=== PATIENT | female | born 1995 | race Caucasian/White ===

== ENCOUNTER 2016-08-30 07:23 | Emergency (ER) | payer SELFPAY ==
[~2016-08-30] VITALS: Ht 152.4 cm; Wt 68.0 kg
[2016-08-30] MEDS ORDERED: LIDOCAINE 2% VISCOUS 15 ML UDC PO ONE (07:45)
[2016-08-30] MEDS ORDERED: ANTACID SUSP 30 ML UDC (MYLANTA) PO ONE (07:45)
[2016-08-30] MEDS ORDERED: ONDANSETRON 4 MG (ZOFRAN) ORAL DISSOLVE TAB PO ONE (08:00)
--- NOTE | 2016-08-30 08:13 | ED Abdominal Pain ---
General Chief Complaint: Abdominal/GI Problems Stated Complaint: ABD PAIN Nursing Triage Note: PT REPORTS EPIGASTRIC PAIN SINCE AWAKENING THIS AM. SHE DENIES N/V OR FEVER. Sepsis Screen: No Definite Risk Source of Information: Patient Exam Limitations: No Limitations History of Present Illness Time Seen By Provider: 08:13 Initial Comments This 21-year-old white female presents with complaint of severe sharp nonradiating epigastric pain that began this morning from prior presentation to the ED. the patient is a history of similar pain in the past from reflux disease for which she has received intermittent treatment, none currently. The patient states that she has had slight nausea with the pain. She has had no associated palpitations, radiation, shortness of breath, fever or chills, black or tarry stools, dysuria or frequency. Next Patient states that she did notice some bright red blood in her stool this morning. The patient has had hemorrhoids in the past with similar bright red blood. Patient's a white female. Patient denies any dietary indiscretion last evening or significant ethanol ingestion. Allergies and Home Medications Allergies Coded Allergies: latex (Verified Allergy, Unknown, 08/30/16) Review of Systems Constitutional: No chills, No fever EENTM: No Blurred Vision Respiratory: Denies Cough Cardiovascular: Denies Chest Pain Gastrointestinal: See HPI, Abdominal Pain, Denies Diarrhea, Nausea, Rectal Bleeding, Denies Vomiting Genitourinary: Denies Burning, Denies Drainage, Denies Frequency Musculoskeletal: No back pain, No joint pain Skin: No rash Psychiatric/Neurological: Anxiety Endocrine: Denies No Symptoms Reported Hematologic/Lymphatic: Denies No Symptoms Reported Past Acaxqyo-Wlbkak-Qxydyc Hx Patient Social History Alcohol Use: Occasionally Uses Recreational Drug Use: No Smoking Status: Current Everyday Smoker Type Used: Cigarettes 2nd Hand Smoke Exposure: Yes Recent Foreign Travel: No Contact w/Someone Who Travel: No Recent Infectious Disease Expo: No Recent Hopitalizations: No Seasonal Allergies Seasonal Allergies: No Reproductive System : No Reviewed Nursing Assessment Reviewed/Agree w Nursing PMH: Yes Physical Exam Vital Signs VS - Last 72 Hours, by Label 08/30/16 07:25 Temp 98.2 Pulse 76 Resp 16 B/P (MAP) 132/73 Pulse Ox 98 O2 Delivery Room Air Capillary Refill : Less Than 3 Seconds General Appearance: WD/WN, mild distress HEENT: normal ENT inspection Neck: normal inspection Respiratory: chest non-tender, lungs clear, normal breath sounds Cardiovascular: regular rate, rhythm, no murmur Gastrointestinal: normal bowel sounds, soft, tenderness (there was mild tenderness in the epigastric region) Rectal: normal exam, normal rectal tone, heme negative stool Extremities: normal range of motion, non-tender, normal inspection Back: normal inspection, no vertebral tenderness Neurologic/Psychiatric: no motor/sensory deficits, alert, normal mood/affect Skin: normal color, warm/dry Progress/Results/Core Measures Results/Orders My Orders Orders - LC MARTINEZ MD Lidocaine 2% Viscous 15 Ml (Xylocaine Vi (08/30/16 07:45) Antacid Suspension (Mylanta Suspension (08/30/16 07:45) Ondansetron Oral Dissolve Tab (Zofran (08/30/16 08:00) Medications Given in ED Current Medications Medications Dose Ordered Sig/Mercedes Route Start Time Stop Time Status Last Admin Dose Admin Al Hydrox/Mg Hydrox/Simethicone 30 ml ONCE ONCE PO 08/30/16 07:45 08/30/16 07:46 DC 08/30/16 07:47 30 ML Lidocaine HCl 15 ml ONCE ONCE PO 08/30/16 07:45 08/30/16 07:46 DC 08/30/16 07:47 15 ML Ondansetron HCl 4 mg ONCE ONCE PO 08/30/16 08:00 08/30/16 08:01 DC 08/30/16 08:01 4 MG Vital Signs/I&O Vital Sign - Last 12Hours 08/30/16 07:25 Temp 98.2 Pulse 76 Resp 16 B/P (MAP) 132/73 Pulse Ox 98 O2 Delivery Room Air Blood Pressure Mean: 92 Point of Care Testing Fecal Occult: Negative Progress Note : Time: 08:19 Progress Note The patient's discomfort was relieved with a GI cocktail. Patient was given 4 mg ODT ondansetron. Patient declined laboratory and radiographic evaluation she had limited income. Departure Impression Impression: Primary Impression: Acid reflux disease Qualified Codes: K21.0 - Gastro-esophageal reflux disease with esophagitis Disposition: 01 HOME, SELF-CARE Condition: Improved Departure-Patient Inst. Decision time for Depature: 08:10 Referrals: LAUREEN THIBODEAUX (PCP) Primary Care Physician Patient Instructions: Acid Reflux (Gastroesophageal Reflux Disease), Adult (DC) Add. Discharge Instructions: Pepcid as prescribed. Close follow-up with your primary care doctor tomorrow. Return if any problems or questions. All discharge instructions reviewed with patient and/or family. Voiced understanding. LC MARTINEZ MD Aug 30, 2016 08:13
[2016-08-30 08:18] VITALS: BP 132/73
== END 2016-08-30 08:20 | disposition home or self-care (01) ==
LOC: EDUNIT# 07:23 → ER 07:26
DX: K21.9 Gastro-esophageal reflux disease without esophagitis (principal); F17.210 Nicotine dependence, cigarettes, uncomplicated; Z77.22 Contact with and (suspected) exposure to environmental tobacco smoke (acute) (chronic)
CPT/HCPCS: 99284

== ENCOUNTER 2018-06-15 14:21 | Emergency (ER) | payer SELFPAY ==
[~2018-06-15] VITALS: Ht 152.4 cm; Wt 77.1 kg
[2018-06-15 14:38] VITALS: BP 132/87
[2018-06-15 15:51] LABS: CLARITY,URINE CLEAR; COLOR,URINE AMBER; GLUCOSE, URINE (UA) NEGATIVE (NEGATIVE); KETONES,URINE 4+ (NEGATIVE); LEUKOCYTE ESTERASE ,URINE 1+ (NEGATIVE); NITRITE,URINE POSITIVE (NEGATIVE); PH,URINE 5 (5-9); PROTEIN,URINE 2+ (NEGATIVE); UROBILINOGEN,URINE 8 MG/DL (NORMAL)
[2018-06-15 16:25] LABS: BACTERIA,URINE FEW /HPF; BILIRUBIN,URINE 3+ (NEGATIVE); SQUAMOUS EPITHELIAL CELL,UR 25-50 /HPF
== END 2018-06-15 15:09 | disposition left against medical advice (07) ==
LOC: EDUNIT# 14:21 → ER 14:22
DX: N15.9 Renal tubulo-interstitial disease, unspecified (principal); F17.210 Nicotine dependence, cigarettes, uncomplicated
CPT/HCPCS: 81000; 87088; 99281

== ENCOUNTER 2018-06-15 15:24 | Emergency (ER) | payer SELFPAY ==
[~2018-06-15] VITALS: Ht 152.4 cm; Wt 77.1 kg
--- OUTSIDE RECORDS SUMMARY | 2018-06-15 15:28 | XMS REPORT ---
Author Author FAY COY [facility] Address [address] [place] [address] Care Team Providers Care Verification Engineer Name Role Phone FAY COY Unavailable PROBLEMS Unknown Problems ALLERGIES No Information ENCOUNTERS Encounter Location Date Diagnosis [facility] [address] [id number] [place] [address] Nov, Encounter for immunization Z23 IMMUNIZATIONS Vaccine Route Administration Date Status FLULAVAL QUAD 0.5ML (6 MO & UP) 2018 IM Intramuscular Dec 10, 2017 Administered SOCIAL HISTORY Never Assessed REASON FOR VISIT Flu shot PLAN OF CARE VITAL SIGNS MEDICATIONS Unknown Medications RESULTS No Results PROCEDURES Procedure Date Ordered Result Body Site FLULAVAL QUAD 0.5ML (6 MO AND UP) 2017Dec 10, 2017 SINGLE IMMUNIZATION ADMIN Dec 10, 2017 INSTRUCTIONS MEDICATIONS ADMINISTERED No Known Medications
--- OUTSIDE RECORDS SUMMARY | 2018-06-15 15:28 | XMS REPORT | Clinical Summary ---
Author Author [facility] Organization [facility] Address Unknown Phone Unavailable Care Team Providers Care It Service Manager Name Role Phone Unverified, Unverified Md PCP Unavailable Source Comments Some departments are not documenting in the electronic medical record. If you do not see the information that you expected, contact Release of Information in the Health Information Management department at [phone] for further assistance in locating additional records.[facility] Allergies Not on File Medications Not on file Active Problems Not on file Social History Date Tobacco Use Types Packs/Day Years Used Never Assessed Sex Assigned at Date Recorded Not on file Industry Job Start Date Occupation Not on file Not on file Not on file Travel End Travel History Travel Start No recent travel history available. Last Filed Vital Signs Not on file Plan of Treatment Health Maintenance Due Date Last Done Comments PHYSICAL (COMPREHENSIVE) 2001 EXAM HIV SCREENING 2009 HPV VACCINES (1 - Female 2009 3-dose series) DTAP/TDAP VACCINES (1 - 2012 Tdap) CERVICAL CANCER SCREENING 2015 INFLUENZA VACCINE 11/15/2018 Results Not on filefrom Last 3 Months
--- NOTE | 2018-06-15 15:29 | NUR ---
TO ROOM PER W/C ACCOMPIED BY MOTHER PATIENT WAS HERE EARLIER AND LEFT DUE TO ER BEING BUSY STATES TRIED TO GO TO URGENT CARE TO BE SEEN QUICKER AND WAS TOLD TO COME BACK TO ER
[2018-06-15] MEDS ORDERED: ONDANSETRON 4 MG/2 ML (SDV) Z0FRAN IVP ONE (16:00)
[2018-06-15] MEDS ORDERED: NS IV 1000 ML 1,000 ML IV SCH (16:00)
[2018-06-15 16:08] LABS: BASOPHILS % (AUTO) 0 % (0-10); EOSINOPHILS % (AUTO) 0 % (0-10); HEMATOCRIT 46 % (35-52); HEMOGLOBIN 15.8 G/DL (11.5-16.0); LYMPHOCYTES # (AUTO) 0.7 X 10^3 (1.0-4.0); LYMPHOCYTES % (AUTO) 7 % (12-44); MEAN CORPUSCULAR HEMOGLOBIN 30 PG (25-34); MEAN CORPUSCULAR HGB CONC 34 G/DL (32-36); MEAN CORPUSCULAR VOLUME 89 FL (80-99); MEAN PLATELET VOLUME 9.7 FL (7.4-10.4); MONOCYTES # (AUTO) 0.6 X 10^3 (0.0-1.0); MONOCYTES % (AUTO) 5 % (0-12); NEUTROPHILS # (AUTO) 9.8 X 10^3 (1.8-7.8); NEUTROPHILS % (AUTO) 88 % (42-75); PLATELET COUNT 259 10^3/uL (130-400); RED CELL DISTRIBUTION WIDTH 12.3 % (10.0-14.5); WHITE BLOOD COUNT 11.1 10^3/uL (4.3-11.0)
[2018-06-15 16:29] LABS: ALANINE AMINOTRANSFERASE 146 U/L (0-55); ALBUMIN 4.6 GM/DL (3.2-4.5); ALKALINE PHOSPHATASE 130 U/L (40-136); AMYLASE 2427 U/L (25-125); BILIRUBIN,TOTAL 6.3 MG/DL (0.1-1.0); BUN/CREATININE RATIO 12; CALCIUM 10.5 MG/DL (8.5-10.1); CARBON DIOXIDE 26 MMOL/L (21-32); CHLORIDE 98 MMOL/L (98-107); CREATININE SERUM 0.75 MG/DL (0.60-1.30); GFR ESTIMATED > 60; GLUCOSE 128 MG/DL (70-105); POTASSIUM 3.7 MMOL/L (3.6-5.0); SODIUM 139 MMOL/L (135-145); TOTAL PROTEIN 8.3 GM/DL (6.4-8.2)
[2018-06-15] MEDS ORDERED: fentaNYL INJECTION 100 MCG/2 ML AMP IVP ONE ×3 (16:30→19:45)
--- NOTE | 2018-06-15 16:52 | ED Abdominal Pain ---
General Chief Complaint: Abdominal/GI Problems Stated Complaint: KIDNEY INFECTION Nursing Triage Note: PT RETURNS TO ER WITH COMPLAINT OF N/V, ABD PAIN. PT STATES SHE WAS RECENTLY DIAGNOSED WITH KIDNEY INFECTION. PT IS CURRENTLY TAKING MACROBID, STARTED YESTERDAY. PT STATES SHE IS TAKING ZOFRAN FOR NAUSEA. Sepsis Screen: No Definite Risk Source of Information: Patient Exam Limitations: No Limitations History of Present Illness Date Seen by Provider: June 15, 2018 Time Seen by Provider: 15:56 Initial Comments 23-year-old female who presents to the emergency room with complaints of nausea and vomiting, epigastric abdominal pain, and a recent urinary tract infection. She reports that she is currently on Macrobid and Zofran for antibiotic coverage and nausea and vomiting but reports that she is still having persistent vomiting with the use of Zofran. She has been on Macrobid 24 hours. She denies fevers. Timing/Duration: 2-3 Days Severity/Quality: Sharp Location: Epigastric Radiation: No Radiation Associated Symptoms: Nausea/Vomiting Allergies and Home Medications Allergies Coded Allergies: azithromycin (Verified Allergy, Unknown, 06/15/18) latex (Verified Allergy, Unknown, 08/30/16) Patient Home Medication List Home Medication List Reviewed: Yes Review of Systems Review of Systems Constitutional: see HPI; No chills, No fever Gastrointestinal: See HPI, Abdominal Pain, Nausea, Vomiting All Other Systems Reviewed Negative Unless Noted: Yes Past Nbbmkdw-Eqfurt-Owshbu Hx Past Med/Social Hx: Reviewed Nursing Past Med/Soc Hx Patient Social History Alcohol Use: Denies Use Recreational Drug Use: No Smoking Status: Current Everyday Smoker Type Used: Cigarettes 2nd Hand Smoke Exposure: Yes Recent Foreign Travel: No Contact w/Someone Who Travel: No Recent Infectious Disease Expo: No Recent Hopitalizations: No Immunizations Up To Date Tetanus Booster (TDap): Unknown Seasonal Allergies Seasonal Allergies: No Past Medical History Surgeries: No Respiratory: No Cardiac: No Neurological: No Genitourinary: No Gastrointestinal: No Musculoskeletal: No Endocrine: No HEENT: No Cancer: No Psychosocial: No Blood Disorders: No Family Medical History Reviewed Nursing Family Hx Physical Exam Vital Signs Vital Signs - First Documented 06/15/18 15:30 Temp 98.0 Pulse 71 Resp 19 B/P (MAP) 127/89 (102) Pulse Ox 98 O2 Delivery Room Air Capillary Refill : Less Than 3 Seconds Height/Weight/BMI Height: 5'0" Weight: 170lbs. oz. 77.624663st; BMI Method:Stated General Appearance: WD/WN, no apparent distress Respiratory: chest non-tender, lungs clear, normal breath sounds, no respiratory distress, no accessory muscle use Cardiovascular: normal peripheral pulses, regular rate, rhythm, no edema, no gallop, no JVD, no murmur Gastrointestinal: normal bowel sounds, soft, no organomegaly, no pulsatile mass , tenderness (epigastric tenderness) Extremities: normal capillary refill Neurologic/Psychiatric: alert, normal mood/affect, oriented x 3 Skin: normal color Progress/Results/Core Measures Results/Orders Lab Results Laboratory Tests Test 06/15/18 15:58 Range/Units White Blood Count 11.1 H 4.3-11.0 10^3/uL Red Blood Count 5.19 4.35-5.85 10^6/uL Hemoglobin 15.8 11.5-16.0 G/DL Hematocrit 46 35-52 % Mean Corpuscular Volume 89 80-99 FL Mean Corpuscular Hemoglobin 30 25-34 PG Mean Corpuscular Hemoglobin Concent 34 32-36 G/DL Red Cell Distribution Width 12.3 10.0-14.5 % Platelet Count 259 130-400 10^3/uL Mean Platelet Volume 9.7 7.4-10.4 FL Neutrophils (%) (Auto) 88 H 42-75 % Lymphocytes (%) (Auto) 7 L 12-44 % Monocytes (%) (Auto) 5 0-12 % Eosinophils (%) (Auto) 0 0-10 % Basophils (%) (Auto) 0 0-10 % Neutrophils # (Auto) 9.8 H 1.8-7.8 X 10^3 Lymphocytes # (Auto) 0.7 L 1.0-4.0 X 10^3 Monocytes # (Auto) 0.6 0.0-1.0 X 10^3 Eosinophils # (Auto) 0.0 0.0-0.3 10^3/uL Basophils # (Auto) 0.0 0.0-0.1 10^3/uL Neutrophils % (Manual) 89 % Lymphocytes % (Manual) 6 % Monocytes % (Manual) 5 % Blood Morphology Comment NORMAL Sodium Level 139 135-145 MMOL/L Potassium Level 3.7 3.6-5.0 MMOL/L Chloride Level 98 98-107 MMOL/L Carbon Dioxide Level 26 21-32 MMOL/L Anion Gap 15 H 5-14 MMOL/L Blood Urea Nitrogen 9 7-18 MG/DL Creatinine 0.75 0.60-1.30 MG/DL Estimat Glomerular Filtration Rate > 60 BUN/Creatinine Ratio 12 Glucose Level 128 H 70-105 MG/DL Calcium Level 10.5 H 8.5-10.1 MG/DL Corrected Calcium 8.5-10.1 MG/DL Total Bilirubin 6.3 H 0.1-1.0 MG/DL Aspartate Amino Transf (AST/SGOT) 49 H 5-34 U/L Alanine Aminotransferase (ALT/SGPT) 146 H 0-55 U/L Alkaline Phosphatase 130 40-136 U/L Total Protein 8.3 H 6.4-8.2 GM/DL Albumin 4.6 H 3.2-4.5 GM/DL Amylase Level 2427 H 25-125 U/L Lipase 7719 H 8-78 U/L My Orders Orders - JAYCEE BANERJEE Comprehensive Metabolic Panel (06/15/18 15:55) Lipase (06/15/18 15:55) Amylase (06/15/18 15:55) Ed Iv/Invasive Line Start (06/15/18 15:55) Cbc With Automated Diff (06/15/18 15:55) Ns Iv 1000 Ml (Sodium Chloride 0.9%) (06/15/18 16:00) Ondansetron Injection (Zofran Injectio (06/15/18 16:00) Manual Differential (06/15/18 15:58) Fentanyl Injection (Sublimaze Injection (06/15/18 16:30) Ct Abdomen/Pelvis W (06/15/18 18:00) Iohexol Injection (Omnipaque 350 Mg/Ml 1 (06/15/18 18:15) Received Contrast (Hold Metformin- Contr (06/15/18 18:15) Fentanyl Injection (Sublimaze Injection (06/15/18 18:15) Promethazine Injection (Phenergan Injec (06/15/18 19:45) Fentanyl Injection (Sublimaze Injection (06/15/18 19:45) Levofloxacin 500 Mg/100 Ml Iv (Levaquin (06/15/18 20:15) Morphine Injection (Morphine Injection (06/15/18 21:08) Morphine Injection (Morphine Injection (06/15/18 22:42) Medications Given in ED Current Medications Medications Dose Ordered Sig/Mercedes Route Start Time Stop Time Status Last Admin Dose Admin Fentanyl Citrate 50 mcg ONCE ONCE IVP 06/15/18 16:30 06/15/18 16:31 DC 06/15/18 16:44 50 MCG Fentanyl Citrate 50 mcg ONCE ONCE IVP 06/15/18 18:15 06/15/18 18:16 DC 06/15/18 18:15 50 MCG Fentanyl Citrate 50 mcg ONCE ONCE IVP 06/15/18 19:45 06/15/18 19:46 DC 06/15/18 19:41 50 MCG Levofloxacin/ Dextrose 100 ml @ 100 mls/hr ONCE ONCE IV 06/15/18 20:15 06/15/18 21:14 DC 06/15/18 20:52 100 MLS/HR Ondansetron HCl 8 mg ONCE ONCE IVP 06/15/18 16:00 06/15/18 16:01 DC 06/15/18 16:03 8 MG Promethazine HCl 25 mg ONCE ONCE IVP 06/15/18 19:45 06/15/18 19:46 DC 06/15/18 19:42 25 MG Vital Signs/I&O 06/15/18 15:30 Temp 98.0 Pulse 71 Resp 19 B/P (MAP) 127/89 (102) Pulse Ox 98 O2 Delivery Room Air Blood Pressure Mean: 102 Progress Progress Note : Time: 20:00 Progress Note I have discussed the case with Dr. VERMA at this time and he recommends admitting to Dr. Modi and he will consult on the patient. 2004: I have discussed the case with Dr. Modi at this time. She recommends transferring the patient to somewhere that can perform the ERCP if you should be needed due to her significant pancreatitis. I have discussed this with the patient and she agrees for plans of transfer and requested go to [facility].. 2011: I have discussed the case with Dr. Wise at this time and he agrees to accept the patient to his services, starting Levaquin 500 mg IV. I have informed the patient of plans of transfer and she agrees to be transferred by EMS. Diagnostic Imaging Diagonstic Imaging: CT Plain Films/CT/US/NM/MRI: abdomen, pelvis Comments [facility] [place], [place] NAME: ROM[facility]INE [facility] REC#: [id number] PT STATUS: REG ER : 1995 PHYSICIAN: JAYCEE BANERJEE ADMIT DATE: 06/15/18/ER Draft Date of Exam:06/15/18 CT ABDOMEN/PELVIS W PROCEDURE: CT abdomen and pelvis with contrast. TECHNIQUE: Multiple contiguous axial images were obtained through the abdomen and pelvis after administration of intravenous contrast. Auto Exposure Controls were utilized during the CT exam to meet ALARA standards for radiation dose reduction. INDICATION: Upper abdominal pain, nausea, and vomiting. Concern for kidney infection or pancreatitis. COMPARISON: None available. FINDINGS: The lung bases are clear and the visualized heart is normal in size. There is a 1.4 cm peripherally calcified gallstone near the neck of the gallbladder. There is diffuse central intrahepatic biliary ductal dilatation, as well as marked dilatation of the common bile duct which measures up to 11 mm distally. It tapers to a normal diameter in its most distal portion near the ampulla. No radiopaque gallstone is demonstrated in the common bile duct. There is suggestion of mild gallbladder wall edema. The liver, spleen, pancreas, and adrenal glands are normal. The kidneys are symmetric in size and enhance normally, without evidence of renal calculus, hydronephrosis, or suspicious renal mass. The visualized ureters are normal. The stomach is moderately distended with fluid. There is no evidence of obstruction or focal bowel wall thickening. The appendix is normal. No pneumoperitoneum, abdominal free fluid, or loculated collection is noted. The aorta is nonaneurysmal. There is no evidence of venous thrombosis. No lymphadenopathy is demonstrated. The bladder is normal, within limits of underdistention. The uterus demonstrates a normal CT appearance. No adnexal mass or pelvic free fluid is demonstrated. The abdominal wall is unremarkable. No acute osseous abnormality is identified. IMPRESSION: Cholelithiasis with suggestion of mild gallbladder wall edema, possibly reflecting acute cholecystitis. There is intrahepatic biliary ductal dilatation, as well as enlargement of the common bile duct, which measures up to 11 mm in diameter. The terminal common bile duct tapers to a normal diameter. This can be further evaluated with dedicated gallbladder ultrasound or HIDA scan, as clinically indicated. Dictated on workstation # [id number] Dict: 06/15/18 1900 Trans: 06/15/18 191 [id number] Interpreted by: ANTONINA STUBBS DO Electronically signed by: Reviewed: Reviewed by Me Departure Impression Primary Impression: Acute pancreatitis Additional Impressions: Urinary tract infection Acute cholecystitis possible ERCP Disposition: XFER SHT-TRM HOSP Condition: Stable/Unchanged Transfer Time Spoke to Accepting Phy: 20:[address] Wise Transfer Time: 20:57 Transfer Facility: [facility] Method of Transfer: EMS ([facility]) Departure-Patient Inst. Referrals: [facility] (PCP) Primary Care Physician LAUREEN NORIEGA (Family) Primary Care Physician JAYCEE BANERJEE June 15, 2018 16:52
[2018-06-15 16:59] LABS: LIPASE 7719 U/L (8-78)
[2018-06-15 17:02] LABS: LYMPHOCYTES % (MANUAL) 6 %; MONOCYTES % (MANUAL) 5 %; NEUTROPHILS % (MANUAL) 89 %; RBC MORPH NORMAL
--- NOTE | 2018-06-15 17:16 | NUR ---
TO ROOM FLUIDS INFUSING PATIENT SLEEPING.
[2018-06-15] MEDS ORDERED: HOLD METFORMIN - RECEIVED CONTRAST 20 ML VIAL IV SCH (18:15)
[2018-06-15] MEDS ORDERED: IOHEXOL 350 MG/ML 100 ML (OMNIPAQUE 350) VIAL IV ONE (18:15)
--- NOTE | 2018-06-15 19:12 | Diagnostic Imaging Report ---
PROCEDURE: CT abdomen and pelvis with contrast. TECHNIQUE: Multiple contiguous axial images were obtained through the abdomen and pelvis after administration of intravenous contrast. Auto Exposure Controls were utilized during the CT exam to meet ALARA standards for radiation dose reduction. INDICATION: Upper abdominal pain, nausea, and vomiting. Concern for kidney infection or pancreatitis. COMPARISON: None available. FINDINGS: The lung bases are clear and the visualized heart is normal in size. There is a 1.4 cm peripherally calcified gallstone near the neck of the gallbladder. There is diffuse central intrahepatic biliary ductal dilatation, as well as marked dilatation of the common bile duct which measures up to 11 mm distally. It tapers to a normal diameter in its most distal portion near the ampulla. No radiopaque gallstone is demonstrated in the common bile duct. There is suggestion of mild gallbladder wall edema. The liver, spleen, pancreas, and adrenal glands are normal. The kidneys are symmetric in size and enhance normally, without evidence of renal calculus, hydronephrosis, or suspicious renal mass. The visualized ureters are normal. The stomach is moderately distended with fluid. There is no evidence of obstruction or focal bowel wall thickening. The appendix is normal. No pneumoperitoneum, abdominal free fluid, or loculated collection is noted. The aorta is nonaneurysmal. There is no evidence of venous thrombosis. No lymphadenopathy is demonstrated. The bladder is normal, within limits of underdistention. The uterus demonstrates a normal CT appearance. No adnexal mass or pelvic free fluid is demonstrated. The abdominal wall is unremarkable. No acute osseous abnormality is identified. IMPRESSION: Cholelithiasis with suggestion of mild gallbladder wall edema, possibly reflecting acute cholecystitis. There is intrahepatic biliary ductal dilatation, as well as enlargement of the common bile duct, which measures up to 11 mm in diameter. The terminal common bile duct tapers to a normal diameter. This can be further evaluated with dedicated gallbladder ultrasound or HIDA scan, as clinically indicated. Dictated by: Dictated on workstation # [id number]
[2018-06-15] MEDS ORDERED: PROMETHAZINE INJ 25 MG/ML (PHENERGAN) AMP IVP ONE (19:45)
[2018-06-15] MEDS ORDERED: LEVOFLOXACIN 500 MG/100 ML IV 100 ML IV ONE (20:15)
[2018-06-15] MEDS ORDERED: morphine INJ 10 MG/ML 1ML (SYR OR VIAL) IVP STA ×2 (21:08→22:42)
--- NOTE | 2018-06-15 21:48 | NUR ---
PATIENT REPORT GIVEN TO CASIMIRO ALMODOVAR FROM CASIMIRO MICHAELS. UPON ARRIVAL TO [facility] PT TO ROOM #[id number].
[2018-06-15 22:49] VITALS: BP 125/87
== END 2018-06-15 22:49 | disposition short-term general hospital (02) ==
LOC: EDUNIT# 15:24 → ER 15:25
DX: K85.90 Acute pancreatitis without necrosis or infection, unspecified (principal); N39.0 Urinary tract infection, site not specified; K81.0 Acute cholecystitis; F17.210 Nicotine dependence, cigarettes, uncomplicated; Z88.1 Allergy status to other antibiotic agents; Z91.040 Latex allergy status
CPT/HCPCS: 36415; 74177; 80053; 82150; 83690; 84703; 85007; 85027